=== PATIENT | female | born 1955 | race Two or more races ===

== ENCOUNTER 2017-11-05 11:40 | Inpatient (IN) | payer MEDICAID ==
[~2017-11-05] VITALS: Ht 154.9 cm; Wt 70.8 kg
[~2017-11-05 11:40] MED LIST: ASPI81CH49 PO; CARV80CA; ENAL20TA70 PO; FAMO20IN2 IV; HYDR25TA4 PO; METH5TAB77 PO
[2017-11-05] MEDS ORDERED: SODIUM CHLORIDE 0.9% 1,000 ML IV ONE (12:36)
[2017-11-05] MEDS ORDERED: SODIUM CHLORIDE 0.9% 500 ML IV ONE (12:36)
[2017-11-05 12:53] LABS: Basophils # (auto) 0 uL; Basophils % (auto) 0.7 % (0.0-2.0); Eosinophils # (auto) 0.1 uL; Eosinophils % (auto) 1.2 % (0.0-7.0); Hematocrit 41.8 % (36.0-46.0); Hemoglobin 13.8 g/dL (12.2-16.2); Lymphocytes # (auto) 0.7 uL; Lymphocytes % (auto) 13.9 % (10.0-50.0); Mean Corpuscular Hemoglobin 32.3 pg (28.0-32.0); Mean Corpuscular Volume 97.9 fL (80.0-100.0); Monocytes # (auto) 0.6 uL; Neutrophils # (auto) 3.8 uL; Neutrophils % (auto) 73.2 % (37.0-80.0); Nucleated Red Blood Cells % 0.1 %; Platelet Count (auto) 120 10^3/uL (140-450); Red Blood Cells 4.27 10^6/uL (4.0-5.20); Red Cell Distribution Width 14.1 % (11.8-14.3); White Blood Cell 5.2 10^3/uL (4.4-10.8)
[2017-11-05 13:06] LABS: INR 0.96 (0.9-1.15); Partial Thromboplastin Time 25.8 sec (22.64-33.71); Prothrombin Time 10.5 sec (9.37-12.3)
[2017-11-05 13:14] LABS: Albumin 3.7 g/dL (3.4-5.0); Anion Gap 10 (5-15); Calcium 9.1 mg/dL (8.5-10.1); Carbon Dioxide 26 mmol/L (21-32); Chloride 106 mmol/L (98-107); Glucose 91 mg/dL (74-106); Potassium 3.9 mmol/L (3.5-5.1); Sodium 142 mmol/L (136-145)
[2017-11-05 13:23] LABS: Alanine Aminotransferase 19 U/L (13-56); Alkaline Phosphatase 67 U/L (45-117); Aspartate Aminotransferase 16 U/L (15-37); BUN/Creatinine Ratio 19.6; Bilirubin, Total 0.3 mg/dL (0.2-1.0); Blood Urea Nitrogen 20 mg/dL (7-18); GFR African American 71 mL/min; GFR Non-African American 58 mL/min; Total Protein 7.9 g/dL (6.4-8.2)
[2017-11-05] MEDS ORDERED: HYDROcodone-ACET 5/325MG TAB PO PRN (14:30)
[2017-11-05] MEDS ORDERED: ACETAMINOPHEN 500 MG TAB PO PRN (14:30)
[2017-11-05] MEDS ORDERED: PROMETHAZINE HCL 25 MG/ML 1ML IV PRN (14:30)
[2017-11-05] MEDS ORDERED: MORPHINE SULFATE 4 MG/ML SYR/VIAL IV PRN ×2 (14:30)
[2017-11-05] MEDS ORDERED: NITROGLYCERIN 0.4 MG SL TAB SL PRN (14:30)
[2017-11-05] MEDS ORDERED: LORazepam 0.5 MG TAB PO PRN (14:30)
[2017-11-05] MEDS ORDERED: LACTULOSE 20Gm/30ML SOLN PO PRN (14:30)
[2017-11-05] MEDS ORDERED: TEMAZEPAM 15 MG CAP PO PRN (14:30)
[2017-11-05] MEDS: SODIUM CHLORIDE 0.9% 1,000 ML IV SCH (14:54)
[2017-11-05] MEDS: ASPirin 81 mg TAB PO SCH ×2 (14:55→15:01)
[2017-11-05] MEDS: ENOXAPARIN SOD 40 MG/0.4 ML SYRINGE SC SCH (15:01)
[2017-11-05] MEDS ORDERED: IOHEXOL 350 MG/ML 100ML IJ ONE (15:22)
[2017-11-05] MEDS ORDERED: OSELTAMIVIR 75 MG CAP PO ONE (15:30)
[2017-11-05] MEDS ORDERED: ALBUTEROL SULF 2.5 MG/0.5ML(0.5%) NEB SOLN NEB PRN (15:30)
[2017-11-05] MEDS: DOXYCYCLINE HYC 100MG/250ML 250 ML IV SCH (15:46)
[2017-11-05 15:48] VITALS: BP 88/51
[2017-11-05] MEDS: ALBUTEROL SULF 2.5 MG/0.5ML(0.5%) NEB SOLN NEB SCH (18:30)
[2017-11-05 18:49] LABS: Alcohol, Urine < 3.0 mg/dL (0-5); Amphetamine Screen, Urine NEGATIVE (NEGATIVE); Barbiturate Scree,Urine NEGATIVE (NEGATIVE); Benzodiazephine Screen, Urine NEGATIVE (NEGATIVE); Cannabinoid Screen, Urine NEGATIVE (NEGATIVE); Cocaine Screen, Urine NEGATIVE (NEGATIVE); Opiate Scree,Urine NEGATIVE (NEGATIVE); Phencyclidine Screen, Urine NEGATIVE (NEGATIVE)
[2017-11-05 19:28] LABS: Urine Bacteria FEW /hpf (None Seen); Urine Blood 1+ /uL (Negative); Urine Hyaline Cast FEW /lpf (0 - 2); Urine Mucus FEW (None Seen); Urine Specific Gravity 1.046 (1.001-1.035); Urine WBC 20 /hpf (0 - 5)
[2017-11-05 22:00] VITALS: BP 135/72
[2017-11-05] MEDS: OSELTAMIVIR 75 MG CAP PO SCH (23:00)
[2017-11-06] VITALS (7 sets, daily range): BP systolic 117–144; BP diastolic 64–79
[2017-11-06] MEDS: SODIUM CHLORIDE 0.9% 1,000 ML IV SCH ×3 (00:29→20:29)
[2017-11-06] MEDS: ALBUTEROL SULF 2.5 MG/0.5ML(0.5%) NEB SOLN NEB SCH ×4 (01:00→18:52)
[2017-11-06] MEDS: DOXYCYCLINE HYC 100MG/250ML 250 ML IV SCH ×2 (04:24→16:08)
[2017-11-06 06:42] LABS: Cholesterol 144 mg/dL (< 200); HDL Cholesterol 46 mg/dL (40-59); LDL Cholesterol 90 mg/dL (< 100); Triglycerides 128 mg/dL (< 150)
[2017-11-06 09:36] LABS: Folate (Folic Acid) 10.59 ng/mL (5.38-24)
[2017-11-06] MEDS: ENOXAPARIN SOD 40 MG/0.4 ML SYRINGE SC SCH (10:08)
[2017-11-06] MEDS: OSELTAMIVIR 75 MG CAP PO SCH ×2 (10:08→23:22)
[2017-11-07 05:00] VITALS: BP 113/71
[2017-11-07] MEDS: ALBUTEROL SULF 2.5 MG/0.5ML(0.5%) NEB SOLN NEB SCH ×4 (05:57→19:53)
[2017-11-07] MEDS: SODIUM CHLORIDE 0.9% 1,000 ML IV SCH ×2 (06:29→16:36)
[2017-11-07] MEDS: DOXYCYCLINE HYC 100MG/250ML 250 ML IV SCH ×2 (06:31→16:36)
[2017-11-07 08:00] VITALS: BP 125/65
[2017-11-07 09:03] VITALS: BP 125/65
[2017-11-07] MEDS: OSELTAMIVIR 75 MG CAP PO SCH (09:53)
[2017-11-07] MEDS: ASPirin 81 mg TAB PO SCH (09:53)
[2017-11-07] MEDS: ENOXAPARIN SOD 40 MG/0.4 ML SYRINGE SC SCH (09:53)
[2017-11-07 13:18] VITALS: BP 125/74
[2017-11-07 16:59] VITALS: BP 136/84
[2017-11-07 17:04] VITALS: BP 136/84
== END 2017-11-07 20:00 | disposition home or self-care (01) | DRG 207 ==
LOC: ER 11:40 → EDBD 11:40 → TELE 11:41 → TELE-WESTW 20:59
PROVIDERS: ADMIT Internal Medicine; ATTEND Internal Medicine
DX: I95.9 Hypotension, unspecified (principal); I10 Essential (primary) hypertension; R55 Syncope and collapse; E78.5 Hyperlipidemia, unspecified; I25.10 Atherosclerotic heart disease of native coronary artery without angina pectoris; E86.0 Dehydration; R00.1 Bradycardia, unspecified; J10.1 Influenza due to other identified influenza virus with other respiratory manifestations; Z79.899 Other long term (current) drug therapy; Z95.810 Presence of automatic (implantable) cardiac defibrillator; Z83.3 Family history of diabetes mellitus; Z90.49 Acquired absence of other specified parts of digestive tract
CPT/HCPCS: 36415; 70450; 71045; 71275; 80053; 80061; 80307; 81001; 82550; 82607; 82746; 82962; 83880; 84443; 84484; 85025; 85379; 85610; 85652; 85730; 86141; 87070; 87081; 87205; 87400; 93005; 93306; 94640; 94761; 95819; 96360; 96361; 96372; J3490

== ENCOUNTER 2018-10-20 14:40 | Emergency (ER) | payer MEDICAID ==
[~2018-10-20] VITALS: Ht 154.9 cm
[~2018-10-20 14:40] MED LIST changes: +METH5T PO; -METH5TAB77 PO
[2018-10-20 15:47] VITALS: BP 145/85
[2018-10-20] MEDS ORDERED: KETOROLAC TROMETH 60MG/2ML VIAL IM ONE (16:30)
== END 2018-10-20 16:50 | disposition home or self-care (01) ==
LOC: EDBD 14:40 → EDSEX 14:40 → ER 14:45
DX: G44.209 Tension-type headache, unspecified, not intractable (principal); I25.10 Atherosclerotic heart disease of native coronary artery without angina pectoris; I10 Essential (primary) hypertension
CPT/HCPCS: 70450; 81002; 96372; 99284; J1885

== ENCOUNTER 2021-05-20 08:32 | Inpatient (IN) | payer OTHER, MEDICAID ==
[~2021-05-20] VITALS: Ht 152.4 cm; Wt 81.4 kg
[~2021-05-20 08:32] MED LIST changes: -CARV80CA; +CARV80CA PO; -ENAL20TA70 PO; -FAMO20IN2 IV; -HYDR25TA4 PO
[2021-05-20] MEDS ORDERED: ACETAMINOPHEN IV 100 ML IV ONE (08:44)
[2021-05-20] MEDS ORDERED: ceFAZolin 1GM/50ML 100 ML IV ONE (08:44)
[2021-05-20] MEDS ORDERED: CELECOXIB 100 MG CAP PO ONE (09:00)
[2021-05-20] MEDS ORDERED: PREGABALIN CAPSULE 75 MG CAP PO ONE (09:00)
[2021-05-20] MEDS ORDERED: ACETAMINOPHEN IV 1000 MG/100ML (10MG/ML) IV ONE (09:00)
[2021-05-20] MEDS ORDERED: TRANEXAMIC ACID 20 ML ONE (09:31)
[2021-05-20] MEDS: BUPIVACAINE 0.25% INJ 50ML VIAL ONE ×2 (09:32→11:10)
[2021-05-20] MEDS ORDERED: TETRACAINE 1% INJ 2 ML VIAL IJ ONE (09:32)
[2021-05-20] MEDS: VANCOMYCIN HCL 1000 MG VL ONE ×2 (09:34→11:12)
[2021-05-20] MEDS ORDERED: KETOROLAC TROMETH 60MG/2ML VIAL ONE (09:34)
[2021-05-20] MEDS ORDERED: fentaNYL CITRATE 100 MCG/2 ML VL ONE (10:00)
[2021-05-20] MEDS ORDERED: MIDAZOLAM HCL 2MG/2ML 2ml VIAL (1mg/ml) ONE (10:00)
[2021-05-20] MEDS ORDERED: MORPHINE SULF(PF) 0.5MG/ML 10ML VIAL ONE (10:00)
[2021-05-20] MEDS ORDERED: DexAMETHasone SOD PHOS 10MG/1ML VIAL INJ ONE (10:11)
[2021-05-20] MEDS ORDERED: PROPOFOL 10 MG/ML 20 ML IV ONE (10:11)
[2021-05-20] MEDS ORDERED: LABETALOL HCL 5 MG/ML 4ML SYRINGE IV PRN (10:15)
[2021-05-20] MEDS ORDERED: ONDANSETRON HCL 4 MG/2 ML VIAL IV PRN ×2 (10:15→11:45)
[2021-05-20] MEDS ORDERED: NALBUPHINE HCL 10 MG/1ml INJECTION SUBCUT ONE (10:15)
[2021-05-20] MEDS ORDERED: diphenhdrAMINE HCL 50 MG/1 ML VL IV PRN (10:15)
[2021-05-20] MEDS ORDERED: HYDROmorphone HCL 2 MG/ML VL IV PRN (10:15)
[2021-05-20] MEDS ORDERED: NALOXONE HCL 0.4 MG/ML VIAL IV PRN (10:15)
[2021-05-20] MEDS ORDERED: DexAMETHasone SOD PHOS 10MG/1ML VIAL INJ IV PRN (10:15)
[2021-05-20] MEDS ORDERED: KETOROLAC TROMETH 30 MG/ML 1ML VIAL IV PRN (10:15)
[2021-05-20] MEDS ORDERED: ePHEDrine SULFATE 50 MG/ML AMP IV PRN (10:15)
[2021-05-20] MEDS: KETOROLAC TROMETH 30 MG/ML 1ML VIAL ONE ×2 (10:38→11:10)
[2021-05-20] MEDS: LACTATED RINGER'S 1,000 ML IV SCH ×2 (11:45→16:04)
[2021-05-20] MEDS ORDERED: MORPHINE SULFATE INJECTION 2 MG/2 ML SYRG IV PRN (11:45)
[2021-05-20] MEDS ORDERED: NITROGLYCERIN 0.4 MG SL TAB SL PRN (11:45)
[2021-05-20] MEDS: SODIUM CHLOR 0.9% PF (SALINE LOCK) 10ML VIAL/SYR IV SCH ×2 (14:00→21:29)
[2021-05-20] MEDS: ceFAZolin 1GM/50ML 50 ML IV SCH ×2 (16:05→23:57)
[2021-05-20] MEDS: DOCUSATE SOD 100 MG CAP PO SCH (21:26)
[2021-05-20] MEDS: CARVEDILOL 3.125 MG TAB PO SCH (21:27)
[2021-05-20 22:00] VITALS: BP 124/70
[2021-05-21] VITALS (15 sets, daily range): BP systolic 114–150; BP diastolic 65–89
[2021-05-21 05:25] LABS: Hematocrit 36.5 % (36.0-46.0); Hemoglobin 12.4 g/dL (12.2-16.2)
[2021-05-21] MEDS: SODIUM CHLOR 0.9% PF (SALINE LOCK) 10ML VIAL/SYR IV SCH ×3 (06:00→21:36)
[2021-05-21 06:08] LABS: Potassium 4.2 mmol/L (3.5-5.1)
[2021-05-21 06:32] LABS: Albumin 2.6 g/dL (3.4-5.0); BUN/Creatinine Ratio 39.5; Bilirubin, Total 0.8 mg/dL (0.2-1.0); Calcium 7.8 mg/dL (8.5-10.1); Total Protein 6.1 g/dL (6.4-8.2)
[2021-05-21] MEDS: ceFAZolin 1GM/50ML 50 ML IV SCH (08:22)
[2021-05-21] MEDS: HYDROmorphone HCL 2 MG/ML VL IV PRN ×2 (08:30→13:09)
[2021-05-21] MEDS: LACTATED RINGER'S 1,000 ML IV SCH ×3 (08:39→18:47)
[2021-05-21] MEDS: DOCUSATE SOD 100 MG CAP PO SCH ×2 (10:19→21:36)
[2021-05-21] MEDS: methIMAzole 5 MG TAB PO SCH (10:20)
[2021-05-21] MEDS: CARVEDILOL 3.125 MG TAB PO SCH ×2 (10:20→21:37)
[2021-05-21] MEDS: ENOXAPARIN SOD 40 MG/0.4 ML SYRINGE SC SCH (10:20)
[2021-05-21] MEDS ORDERED: CHOL400T19 PO (11:37)
[2021-05-21] MEDS: OXYCODONE W/ ACETAMINOPHEN 5/325MG TABLET PO PRN (20:16)
[2021-05-22] MEDS: HYDROmorphone HCL 2 MG/ML VL IV PRN ×2 (04:42→05:23)
[2021-05-22 05:00] VITALS: BP 132/72
[2021-05-22] MEDS: SODIUM CHLOR 0.9% PF (SALINE LOCK) 10ML VIAL/SYR IV SCH ×3 (05:22→21:21)
[2021-05-22 06:29] LABS: Hematocrit 32.2 % (36.0-46.0); Hemoglobin 11.3 g/dL (12.2-16.2)
[2021-05-22] MEDS: KETOROLAC TROMETH 30 MG/ML 1ML VIAL IV PRN ×2 (07:53→17:36)
[2021-05-22 09:00] VITALS: BP 143/72
[2021-05-22] MEDS: DOCUSATE SOD 100 MG CAP PO SCH ×2 (10:06→21:17)
[2021-05-22] MEDS: methIMAzole 5 MG TAB PO SCH (10:07)
[2021-05-22] MEDS: ENOXAPARIN SOD 40 MG/0.4 ML SYRINGE SC SCH (10:07)
[2021-05-22] MEDS: CARVEDILOL 3.125 MG TAB PO SCH ×2 (10:07→11:07)
[2021-05-22] MEDS: OXYCODONE W/ ACETAMINOPHEN 5/325MG TABLET PO PRN ×2 (12:34→21:20)
[2021-05-22 13:00] VITALS: BP 125/69
[2021-05-22] MEDS: LACTATED RINGER'S 1,000 ML IV SCH ×2 (14:14→23:45)
[2021-05-22 17:00] VITALS: BP 118/73
[2021-05-22 22:00] VITALS: BP 133/65
[2021-05-23 05:00] VITALS: BP 114/73
[2021-05-23 05:09] LABS: Hematocrit 30.1 % (36.0-46.0); Hemoglobin 10.6 g/dL (12.2-16.2)
[2021-05-23] MEDS: SODIUM CHLOR 0.9% PF (SALINE LOCK) 10ML VIAL/SYR IV SCH ×2 (06:00→14:00)
[2021-05-23] MEDS: LACTATED RINGER'S 1,000 ML IV SCH (07:15)
[2021-05-23] MEDS: OXYCODONE W/ ACETAMINOPHEN 5/325MG TABLET PO PRN (08:10)
[2021-05-23] MEDS ORDERED: OXYCODONE W/ ACETAMINOPHEN 5/325MG TABLET PO PRN ×4 (08:15→11:00)
[2021-05-23 09:00] VITALS: BP 132/76
[2021-05-23] MEDS ORDERED: oxyCODONE ER 10 MG TAB PO SCH (10:00)
[2021-05-23] MEDS: DOCUSATE SOD 100 MG CAP PO SCH (10:27)
[2021-05-23] MEDS: CARVEDILOL 3.125 MG TAB PO SCH (10:27)
[2021-05-23] MEDS: methIMAzole 5 MG TAB PO SCH (10:28)
[2021-05-23] MEDS: ENOXAPARIN SOD 40 MG/0.4 ML SYRINGE SC SCH (10:28)
[2021-05-23 13:00] VITALS: BP 103/61
[2021-05-23] MEDS: KETOROLAC TROMETH 30 MG/ML 1ML VIAL IV SCH ×2 (13:20→18:00)
[2021-05-23 16:39] VITALS: BP 124/68
[2021-05-23 17:00] VITALS: BP 120/70
== END 2021-05-23 19:00 | disposition home health service (06) | DRG 470 ==
LOC: SUR 08:32 → TELE 11:41 → TELE-WESTW 17:52
PROVIDERS: ADMIT Orthopaedic Surgery Adult Reconstructive Orthopaedic Surgery; ATTEND Orthopaedic Surgery Adult Reconstructive Orthopaedic Surgery
PROC: 8E0YXBZ Computer Assisted Procedure of Lower Extremity (ICD-10-PCS; 2021-05-20)
PROC: 0SRC069 Replacement of Right Knee Joint with Oxidized Zirconium on Polyethylene Synthetic Substitute, Cemented, Open Approach (ICD-10-PCS; principal; 2021-05-20 09:52)
DX: M17.11 Unilateral primary osteoarthritis, right knee (principal); I10 Essential (primary) hypertension; M21.061 Valgus deformity, not elsewhere classified, right knee; Z95.810 Presence of automatic (implantable) cardiac defibrillator; Z90.49 Acquired absence of other specified parts of digestive tract; Z90.710 Acquired absence of both cervix and uterus; Z20.822 Contact with and (suspected) exposure to COVID-19
CPT/HCPCS: 36415; 73562; 80053; 85014; 85018; 86850; 86900; 86901; 97110; 97116; 97163; 97530; G0378; J0131; J0690; J1100; J1885; J2250; J2704; J3490

== ENCOUNTER 2023-06-23 13:05 | Emergency (ER) | payer OTHER, MEDICAID ==
[~2023-06-23] VITALS: Ht 154.9 cm; Wt 77.3 kg
[~2023-06-23 13:05] MED LIST changes: +CHOL400T19 PO; -METH5T PO
[2023-06-23] MEDS ORDERED: HYDROcodone-ACET 5/325MG TAB PO ONE (16:00)
[2023-06-23 16:15] VITALS: BP 118/61; PULSE 79; RESP 18; TEMP 98.1; O2SAT 96
[2023-06-23] MEDS ORDERED: IBUP-1454 PO (18:23)
== END 2023-06-23 18:41 | disposition home or self-care (01) ==
LOC: ER 13:05
DX: R51.9 Headache, unspecified (principal); I10 Essential (primary) hypertension; Z90.49 Acquired absence of other specified parts of digestive tract; Z98.890 Other specified postprocedural states
CPT/HCPCS: 70450